=== PATIENT | female | born 1950 | race Caucasian/White ===

== ENCOUNTER 2018-01-29 07:32 | Emergency (ER) | payer MEDICARE, OTHER ==
[~2018-01-29] VITALS: Ht 172.7 cm; Wt 86.2 kg
[~2018-01-29 07:32] MED LIST: ALBU90OI INH; ALPR.5 PO; CEFD300; CEPH500 PO; ERGO400 PO; GLUC500 PO; HYDR1TAB94 PO; LETROZOLE2.5 MG; LEVSOD125 PO; LEVSOD150 PO; LOSA25 PO; LOSARTAN-HCTZ1 EAC1 PO; LOSHYD PO; METO25ER PO; ONDA4ODT PO; PROGESTERONE100 MG; SENIOR VITAMIN PO; VICODIN 5-3001 EACH PO; XARELTO15 MG PO
[2018-01-29] MEDS ORDERED: Aspirin EC81 MG PO (09:00)
== END 2018-01-29 09:15 | disposition home or self-care (01) ==
LOC: ER 07:32
DX: I82.4Z2 Acute embolism and thrombosis of unspecified deep veins of left distal lower extremity (principal); Z88.8 Allergy status to other drugs, medicaments and biological substances; Z91.012 Allergy to eggs; Z79.899 Other long term (current) drug therapy; I10 Essential (primary) hypertension; Z87.891 Personal history of nicotine dependence
CPT/HCPCS: 93971; 99284

== ENCOUNTER 2018-02-10 10:52 | Inpatient (IN) | payer MEDICARE, OTHER ==
[~2018-02-10] VITALS: Ht 162.6 cm; Wt 102.4 kg
[~2018-02-10 10:52] MED LIST changes: +Aspirin EC81 MG PO
[2018-02-10 12:10] LABS: BASOPHILS ABSOLUTE AUTO 0.04 K/mm3 (0.00-0.23); BASOPHILS PERCENT AUTO 0 % (0-2); EOSINOPHILS ABSOLUTE AUTO 0.03 K/mm3 (0.00-0.68); EOSINOPHILS PERCENT AUTO 0 % (0-6); Hematocrit 45.4 % (33.0-51.0); Hemoglobin 15.5 g/dL (11.5-16.0); IMMATURE GRAN ABSOLUTE AUTO 0.08 K/mm3 (0.00-0.10); IMMATURE GRAN PERCENT AUTO 1 % (0-1); LYMPHOCYTES ABSOLUTE AUTO 1.74 K/mm3 (0.84-5.20); LYMPHOCYTES PERCENT AUTO 19 % (21-46); MONOCYTES ABSOLUTE AUTO 0.71 K/mm3 (0.16-1.47); MONOCYTES PERCENT AUTO 8 % (4-13); Mean Corpuscular HGB 35.4 pg (26.0-34.0); Mean Corpuscular HGB Conc 34.1 g/dL (31.5-36.5); Mean Corpuscular Volume 104 fL (80-100); Mean Platelet Volume 9.5 fL (9.1-12.4); NEUTROPHILS ABSOLUTE AUTO 6.44 K/mm3 (1.96-9.15); NEUTROPHILS PERCENT AUTO 71 % (41-73); Platelet Count 168 K/mm3 (150-400); RDW Standard Deviation 49.7 fL (35.1-46.3); Red Blood Cell Count 4.38 M/mm3 (3.80-5.20); White Blood Cell Count 9.04 K/mm3 (4.00-11.30)
[2018-02-10 12:22] LABS: International Normalized Ratio 1.02; Prothrombin Time Results 10.6 Sec (9.7-11.5)
[2018-02-10 12:29] LABS: Alanine Aminotransfer (ALT/SGP 26 U/L (12-78); Albumin, Blood 3.6 g/dL (3.4-5.0); Albumin/Globulin Ratio 1.1 (0.8-1.8); Alk Phos 95 U/L (50-136); Anion Gap 8 mmol/L (6-16); Aspartate Aminotrans (AST/SGOT 16 U/L (12-37); Bilirubin, Total 0.9 mg/dL (0.1-1.0); Blood Urea Nitrogen 16 mg/dL (8-24); Bun/Creatinine Ratio 18.8 (12.0-20.0); CO2, Blood 23 mmol/L (21-32); Chloride, Blood 105 mmol/L (98-108); Creatinine, Blood 0.85 mg/dL (0.40-1.00); Globulin, Blood 3.3 g/dL (2.2-4.0); Glomerular Filtration Rate >60 (60-); Glucose, Blood 102 mg/dL (70-99); Potassium, Blood 3.7 mmol/L (3.5-5.5); Sodium, Blood 136 mmol/L (136-145); Total Protein, Blood 6.9 g/dL (6.4-8.2)
[2018-02-11 05:16] LABS: BASOPHILS ABSOLUTE AUTO 0.04 K/mm3 (0.00-0.23); BASOPHILS PERCENT AUTO 1 % (0-2); EOSINOPHILS ABSOLUTE AUTO 0.09 K/mm3 (0.00-0.68); EOSINOPHILS PERCENT AUTO 1 % (0-6); Hematocrit 42.6 % (33.0-51.0); Hemoglobin 14.4 g/dL (11.5-16.0); IMMATURE GRAN ABSOLUTE AUTO 0.11 K/mm3 (0.00-0.10); IMMATURE GRAN PERCENT AUTO 1 % (0-1); LYMPHOCYTES ABSOLUTE AUTO 2.98 K/mm3 (0.84-5.20); LYMPHOCYTES PERCENT AUTO 36 % (21-46); MONOCYTES ABSOLUTE AUTO 0.78 K/mm3 (0.16-1.47); MONOCYTES PERCENT AUTO 9 % (4-13); Mean Corpuscular HGB Conc 33.8 g/dL (31.5-36.5); Mean Corpuscular Volume 104 fL (80-100); Mean Platelet Volume 9.8 fL (9.1-12.4); NEUTROPHILS ABSOLUTE AUTO 4.29 K/mm3 (1.96-9.15); NEUTROPHILS PERCENT AUTO 52 % (41-73); Platelet Count 165 K/mm3 (150-400); RDW Coefficient Variation 13.1 % (11.7-14.2); RDW Standard Deviation 49.7 fL (35.1-46.3); Red Blood Cell Count 4.11 M/mm3 (3.80-5.20); White Blood Cell Count 8.29 K/mm3 (4.00-11.30)
[2018-02-11 05:35] LABS: Albumin, Blood 3.2 g/dL (3.4-5.0); Bilirubin, Total 0.7 mg/dL (0.1-1.0); Calcium, Blood 8.7 mg/dL (8.5-10.1); Globulin, Blood 3.1 g/dL (2.2-4.0); Potassium, Blood 4.2 mmol/L (3.5-5.5); Total Protein, Blood 6.3 g/dL (6.4-8.2)
[2018-02-12] MEDS ORDERED: ROPI1 PO (13:59)
[2018-02-12] MEDS ORDERED: ELIQUIS5 MG PO (14:00)
== END 2018-02-12 14:45 | disposition home or self-care (01) | DRG 176 ==
LOC: ER 10:52 → MEDS 12:37
PROVIDERS: Internal Medicine; Physician Assistant
DX: I26.99 Other pulmonary embolism without acute cor pulmonale (principal); E03.9 Hypothyroidism, unspecified; F41.9 Anxiety disorder, unspecified; I10 Essential (primary) hypertension; G25.81 Restless legs syndrome; Z85.3 Personal history of malignant neoplasm of breast; Z90.13 Acquired absence of bilateral breasts and nipples; Z88.7 Allergy status to serum and vaccine; Z88.8 Allergy status to other drugs, medicaments and biological substances; Z88.6 Allergy status to analgesic agent; Z91.012 Allergy to eggs; Z86.718 Personal history of other venous thrombosis and embolism; Z79.82 Long term (current) use of aspirin; Z79.899 Other long term (current) drug therapy; Z79.01 Long term (current) use of anticoagulants; Z87.891 Personal history of nicotine dependence
CPT/HCPCS: 36415; 71260; 80053; 82565; 85025; 85610; 85730; 93005; 93010; 94760; 96365; 99285; J1644; J1650; J7040; Q9967

== ENCOUNTER → 2018-12-07 | Outpatient (CLI) | payer MEDICARE, OTHER ==
[~2018-12-07] MED LIST changes: +ELIQUIS5 MG PO; +ROPI1 PO
[2018-12-07 15:20] LABS: International Normalized Ratio 2.95; Prothrombin Time Results 28.6 Sec (9.7-11.5)
== END ==
LOC: LAB EV 13:44 → LAB SHORT 13:44
PROVIDERS: Nurse Practitioner Family
DX: I82.402 Acute embolism and thrombosis of unspecified deep veins of left lower extremity (principal)
CPT/HCPCS: 36415; 85610

== ENCOUNTER → 2020-08-28 | Outpatient (CLI) | payer MEDICARE, OTHER ==
[~2020-08-28] MED LIST changes: +Norco 5-325 Ta1 EACH; +XARELTO20 MG
[2020-08-28 13:58] LABS: Hematocrit 39.9 % (33.0-51.0); Hemoglobin 13.7 g/dL (11.5-16.0); Mean Corpuscular HGB 34.3 pg (26.0-34.0); Mean Corpuscular HGB Conc 34.3 g/dL (31.5-36.5); Mean Corpuscular Volume 100 fL (80-100); Mean Platelet Volume 9.5 fL (9.1-12.4); Platelet Count 235 K/mm3 (150-400); RDW Coefficient Variation 12.4 % (11.7-14.2); RDW Standard Deviation 45.3 fL (35.1-46.3)
[2020-08-28 17:19] LABS: International Normalized Ratio 1.81; Prothrombin Time Results 18.7 Sec (9.7-11.5)
== END ==
LOC: LAB EV 13:51 → LAB SHORT 13:51
PROVIDERS: Nurse Practitioner Family
DX: I82.409 Acute embolism and thrombosis of unspecified deep veins of unspecified lower extremity (principal); R79.9 Abnormal finding of blood chemistry, unspecified
CPT/HCPCS: 36415; 85027; 85610

== ENCOUNTER → 2022-09-05 | Outpatient (CLI) | payer MEDICARE, OTHER ==
[2022-09-05 13:12] LABS: Bilirubin, Urine Neg (Neg); Blood, Urine 2+ (Neg); Glucose Qualitative, Urine Neg (Neg); Ketones, Urine Neg (Neg); Leukocyte Esterase, Urine 3+ (Neg); Nitrite, Urine Pos (Neg); Protein, Urine Neg (Neg); Urobilinogen, Urine NORM (Normal)
[2022-09-05 13:28] LABS: Color, Urine Pale Yellow (P-Yellow)
[2022-09-05 13:29] LABS: Appearance, Urine Hazy (Clear)
[2022-09-05 13:30] LABS: Bacteria Many /hpf; Squamous Epithelial Cells Few /hpf (Few); White Blood Cells, Urine 25-50 /hpf (0-5)
== END | disposition home or self-care (01) ==
LOC: LAB SHORT 11:07 → LAB 11:07
PROVIDERS: Internal Medicine Rheumatology
DX: M13.0 Polyarthritis, unspecified (principal); D64.9 Anemia, unspecified
CPT/HCPCS: 81001; 87077; 87086; 87186

== ENCOUNTER → 2022-12-10 | Outpatient (CLI) | payer MEDICARE, OTHER | END | disposition home or self-care (01) | LOC: LAB SHORT 17:38 → LAB 17:38 | DX: R30.0 Dysuria (principal) | CPT/HCPCS: 87077; 87086; 87186 ==

== ENCOUNTER → 2023-11-13 | Outpatient (CLI) | payer MEDICARE, OTHER | LOC: LAB 17:18 → LAB SHORT 17:18 | DX: N39.0 Urinary tract infection, site not specified (principal) | CPT/HCPCS: 87077; 87086; 87186 ==

== ENCOUNTER 2024-07-14 14:14 | Inpatient (IN) | payer MEDICARE, OTHER ==
[~2024-07-14] VITALS: Ht 175.3 cm; Wt 102.3 kg
[2024-07-14 15:14] LABS: BASOPHILS ABSOLUTE AUTO 0.07 K/mm3 (0.00-0.23); BASOPHILS PERCENT AUTO 1 % (0-2); EOSINOPHILS ABSOLUTE AUTO 0.36 K/mm3 (0.00-0.68); EOSINOPHILS PERCENT AUTO 2 % (0-6); Hematocrit 42.7 % (33.0-51.0); Hemoglobin 14.6 g/dL (11.5-16.0); IMMATURE GRAN ABSOLUTE AUTO 0.06 K/mm3 (0.00-0.10); IMMATURE GRAN PERCENT AUTO 0 % (0-1); LYMPHOCYTES ABSOLUTE AUTO 1.59 K/mm3 (0.84-5.20); LYMPHOCYTES PERCENT AUTO 11 % (21-46); MONOCYTES ABSOLUTE AUTO 1.14 K/mm3 (0.16-1.47); MONOCYTES PERCENT AUTO 8 % (4-13); Mean Corpuscular HGB 31.6 pg (26.0-34.0); Mean Corpuscular HGB Conc 34.2 g/dL (31.5-36.5); Mean Corpuscular Volume 92 fL (80-100); Mean Platelet Volume 10.1 fL (9.1-12.4); NEUTROPHILS ABSOLUTE AUTO 11.78 K/mm3 (1.96-9.15); NEUTROPHILS PERCENT AUTO 79 % (41-73); Platelet Count 312 K/mm3 (150-400); RDW Coefficient Variation 12.5 % (11.7-14.2); RDW Standard Deviation 42.7 fL (35.1-46.3); Red Blood Cell Count 4.62 M/mm3 (3.80-5.20)
[2024-07-14] MEDS ORDERED: Albuterol 2.5 MG/3 ML VIAL INH SCH ×2 (15:30→21:20)
[2024-07-14 15:33] LABS: Albumin, Blood 3.6 g/dL (3.4-5.0); Bilirubin, Total 0.9 mg/dL (0.1-1.0); Bun/Creatinine Ratio 25.9 (12.0-20.0); Calcium, Blood 9.8 mg/dL (8.5-10.1); Creatinine, Blood 1.43 mg/dL (0.40-1.00); Globulin, Blood 3.5 g/dL (2.2-4.0); Potassium, Blood 3.7 mmol/L (3.5-5.5); Total Protein, Blood 7.1 g/dL (6.4-8.2)
[2024-07-14] MEDS ORDERED: NS 1,000 ML IV SCH ×2 (17:10→21:15)
[2024-07-14] MEDS ORDERED: CALCITRIOL0.25 MC4 PO (17:17)
[2024-07-14] MEDS ORDERED: DULOXETINE HCL60 M1 PO (17:17)
[2024-07-14] MEDS ORDERED: LOSARTAN-HCTZ1 EAC5 PO (17:18)
[2024-07-14] MEDS ORDERED: FUROSEMIDE20 MG PO (17:18)
[2024-07-14] MEDS ORDERED: METOPROLOL TART25 MG PO (17:19)
[2024-07-14] MEDS ORDERED: EUTHYROX137 MC1 PO (17:19)
[2024-07-14] MEDS ORDERED: XARELTO20 M1 PO (17:19)
[2024-07-14 18:39] LABS: Source, Urine Clean Catch
[2024-07-14 18:58] LABS: Appearance, Urine Hazy (Clear); Bilirubin, Urine Neg (Neg); Blood, Urine 1+ (Neg); Color, Urine Yellow (P-Yellow); Glucose Qualitative, Urine Neg (Neg); Ketones, Urine Neg (Neg); Leukocyte Esterase, Urine 3+ (Neg); Nitrite, Urine Neg (Neg); Protein, Urine 2+ (Neg); Specific Gravity, Urine 1.015 (1.003-1.022); Urobilinogen, Urine NORM (Normal)
[2024-07-14 19:27] LABS: Bacteria Many /hpf; Squamous Epithelial Cells Mod /hpf (Few); Transitional Epithelial Cells Rare /hpf (0-Rare)
[2024-07-14] MEDS ORDERED: CefTRIAXone Sodium 1,000 MG in NS 100 ML IV ONE (19:55)
[2024-07-14] MEDS ORDERED: Ondansetron HCl 2 MG / ML 2ML Vial IV PRN (21:15)
[2024-07-14] MEDS ORDERED: Albuterol 2.5 MG/3 ML VIAL INH PRN (21:20)
[2024-07-14] MEDS ORDERED: Acetaminophen 325 MG TABLET PO PRN (21:20)
[2024-07-14] MEDS ORDERED: Magnesium Sulf 2 GM/Water 50ML 50 ML IV ONE (22:20)
[2024-07-14 23:03] VITALS: BP 168/62
[2024-07-14 23:15] VITALS: BP 146/96
[2024-07-14 23:30] VITALS: BP 147/99
[2024-07-14 23:54] LABS: Adenovirus Not Detected (NOT DETECT); Bordetella pertussis Not Detected (NOT DETECT); Chlamydophila pneumoniae Not Detected (NOT DETECT); Coronavirus 229E Not Detected (NOT DETECT); Coronavirus HKU1 Not Detected (NOT DETECT); Coronavirus NL63 Not Detected (NOT DETECT); Coronavirus OC43 Not Detected (NOT DETECT); Human Metapneumovirus Not Detected (NOT DETECT); Human Rhinovirus/Enterovirus Not Detected (NOT DETECT); Influenza A/2009-H1 Not Detected (NOT DETECT); Influenza A/H1 Not Detected (NOT DETECT); Influenza A/H3 Not Detected (NOT DETECT); Influenza B Not Detected (NOT DETECT); Mycoplasma pneumoniae Not Detected (NOT DETECT); Parainfluenza Virus 1 Not Detected (NOT DETECT); Parainfluenza Virus 2 Not Detected (NOT DETECT); Parainfluenza Virus 3 Not Detected (NOT DETECT); Parainfluenza Virus 4 Not Detected (NOT DETECT); Respiratory Syncytial Virus Not Detected (NOT DETECT); SARS-Cov-2 (COVID-19), BioFire Not Detected (NOT DETECT)
[2024-07-15] MEDS ORDERED: MethylPREDNISolone Sod Succ 125 MG Vial IV SCH
[2024-07-15] MEDS ORDERED: DULoxetine HCL 60 MG Capsule DR PO SCH ×3 (00:25→21:00)
[2024-07-15] MEDS ORDERED: Rivaroxaban 10 MG Tab PO SCH ×3 (00:25→21:00)
[2024-07-15] MEDS ORDERED: Calcitriol 0.25 MCG Cap PO SCH ×2 (00:30→09:00)
[2024-07-15 03:30] VITALS: BP 135/53
[2024-07-15 04:54] LABS: BASOPHILS ABSOLUTE AUTO 0.03 K/mm3 (0.00-0.23); BASOPHILS PERCENT AUTO 0 % (0-2); EOSINOPHILS PERCENT AUTO 0 % (0-6); Hematocrit 36.4 % (33.0-51.0); Hemoglobin 11.8 g/dL (11.5-16.0); IMMATURE GRAN ABSOLUTE AUTO 0.07 K/mm3 (0.00-0.10); IMMATURE GRAN PERCENT AUTO 1 % (0-1); LYMPHOCYTES ABSOLUTE AUTO 0.52 K/mm3 (0.84-5.20); LYMPHOCYTES PERCENT AUTO 4 % (21-46); MONOCYTES ABSOLUTE AUTO 0.23 K/mm3 (0.16-1.47); MONOCYTES PERCENT AUTO 2 % (4-13); Mean Corpuscular HGB 31.3 pg (26.0-34.0); Mean Corpuscular HGB Conc 32.4 g/dL (31.5-36.5); Mean Platelet Volume 10.5 fL (9.1-12.4); NEUTROPHILS ABSOLUTE AUTO 11.62 K/mm3 (1.96-9.15); NEUTROPHILS PERCENT AUTO 93 % (41-73); Platelet Count 217 K/mm3 (150-400); RDW Coefficient Variation 12.7 % (11.7-14.2); RDW Standard Deviation 45.3 fL (35.1-46.3); Red Blood Cell Count 3.77 M/mm3 (3.80-5.20); White Blood Cell Count 12.47 K/mm3 (4.00-11.30)
[2024-07-15 05:04] LABS: Mean Corpuscular Volume 97 fL (80-100)
--- NOTE | 2024-07-15 05:05 | NUR ---
SHIFT SUMMARY PT ARRIVED TO PCU 4 AT APPROXIMATELY 2300. PT IS A&O X4, ABLE TO MAKE NEEDS KNOWN. VSS, AFEBRILE, SPO2 >93% ON RA. PT REPORTS SOB ON EXERTION. SHE DENIES CP OR PRESSURE. PT ABLE TO TRANSFER FROM ED RPORTAGE SBA TO HOSPITAL BED. NS GTT INFUSING. ADMISSION COMPLETED. PT IS RESTING QUIETLY IN BED, CALL LIGHT WITHIN REACH, BREATHING EVEN AND UNLABORED.
[2024-07-15 05:10] LABS: Bun/Creatinine Ratio 29.3 (12.0-20.0); Calcium, Blood 8.7 mg/dL (8.5-10.1); Creatinine, Blood 1.23 mg/dL (0.40-1.00); Potassium, Blood 3.7 mmol/L (3.5-5.5)
[2024-07-15] MEDS ORDERED: Levothyroxine Sodium 0.137 MG Tab PO SCH (06:00)
[2024-07-15 08:15] VITALS: BP 136/61
--- NOTE | 2024-07-15 08:15 | NUR ---
ASSUMING CARE ASSUMING CARE AT 0700, BEDSIDE SHIFT REPORT GIVEN. PATIENT MEDICATED PER EMAR W/ MORNING MEDICATIONS. PT SITTING UP IN BED EATING BREAKFAST WHEN HEAD TO TOE ASSESSMENT WAS COMPLETED. CALL LIGHT IN REACH OF PT.
[2024-07-15] MEDS ORDERED: Cholecalciferol 1000 Unit Tablet (=25MCG) PO SCH (09:00)
[2024-07-15] MEDS ORDERED: Losartan Potassium 50 MG Tab PO SCH (09:00)
[2024-07-15] MEDS ORDERED: Enoxaparin 40 MG/0.4 ML SYR SC SCH (09:00)
[2024-07-15 10:36] LABS: Bun/Creatinine Ratio 26.6 (12.0-20.0); Calcium, Blood 8.5 mg/dL (8.5-10.1); Creatinine, Blood 1.24 mg/dL (0.40-1.00); Potassium, Blood 3.5 mmol/L (3.5-5.5)
[2024-07-15 11:51] VITALS: BP 126/72
[2024-07-15] MEDS ORDERED: CefTRIAXone Sodium 1,000 MG in NS 100 ML IV SCH (12:00)
[2024-07-15] MEDS ORDERED: Azithromycin 500 MG in NS 250 ML IV SCH (12:00)
[2024-07-15] MEDS ORDERED: CefTRIAXone 1000 MG Vial ONE (12:24)
[2024-07-15] MEDS ORDERED: NS 100 ML IV ONE (12:24)
[2024-07-15] MEDS ORDERED: Sodium Bicarb 8.4% Inj 150 MEQ in Dextrose 5% 1,000 ML IV SCH (12:30)
[2024-07-15 12:33] LABS: Base Excess Venous -7.1 mmol/L; Bicarbonate Venous 19.4 mmol/L (24.0-30.0); PCO2 Venous 30.3 mmHg (38-42); pH Blood Venous 7.38 (7.34-7.37)
[2024-07-15] MEDS ORDERED: Sodium Bicarb 8.4% Inj 75 MEQ in Sodium Chloride 0.45% 1,000 ML IV SCH (12:50)
[2024-07-15] MEDS ORDERED: Azithromycin 500 MG VIAL ONE (13:20)
[2024-07-15] MEDS ORDERED: NS 250 ML IV ONE (13:20)
[2024-07-15 14:36] LABS: Bun/Creatinine Ratio 25.8 (12.0-20.0); Calcium, Blood 8.4 mg/dL (8.5-10.1); Creatinine, Blood 1.32 mg/dL (0.40-1.00); Potassium, Blood 3.4 mmol/L (3.5-5.5)
[2024-07-15] MEDS ORDERED: MethylPREDNISolone Sod Succ 40 MG VIAL IV SCH (16:00)
[2024-07-15 16:15] VITALS: BP 146/53
--- NOTE | 2024-07-15 17:13 | NUR ---
SHIFT SUMMARY PT IS A&O X4, VSS STABLE SINUS TACH IN THE LOW 100'S DURING SHIFT. TRANSFERING SELF, AND AMBULATING TO THE BATHROOM. ROOM AIR, BREATHING TREATMENTS PRN, NO SOB, BREATHING UNLABORED AND EVEN. PT L LEG IS VISABLY LARGER THEN THE R LEG, PT STATES THIS IS NORMAL FOR HER. DR. BARBOUR CONSULT TODAY. PT UPDATED ON PLAN OF CARE. WILL CONTINUE TYO MONITOR UNTIL END OF SHIFT.
[2024-07-15 20:07] VITALS: BP 154/72
[2024-07-15 23:28] VITALS: BP 123/53
[2024-07-16 03:18] VITALS: BP 133/64
[2024-07-16 04:07] LABS: Hematocrit 33.4 % (33.0-51.0); Hemoglobin 11.3 g/dL (11.5-16.0)
[2024-07-16 04:30] LABS: Anion Gap 14 mmol/L (3-11); Blood Urea Nitrogen 38 mg/dL (8-24); Bun/Creatinine Ratio 29.2 (12.0-20.0); CO2, Blood 21 mmol/L (21-32); Calcium, Blood 8.3 mg/dL (8.5-10.1); Chloride, Blood 107 mmol/L (98-108); Glomerular Filtration Rate 44 (60-); Glucose, Blood 164 mg/dL (70-99); Phosphorus, Blood 2.8 mg/dL (2.5-4.9); Potassium, Blood 3.7 mmol/L (3.5-5.5); Sodium, Blood 138 mmol/L (136-145)
--- NOTE | 2024-07-16 05:30 | NUR ---
SHIFT SUMMARY THIS RN ASSUMED CARE OF PATIENT AT 1900. PT A&O X4. ABLE TO MAKE NEEDS KNOWN. SR/ST ON MONITOR WITH HR 90-100'S. OTHER VSS. ON RA. DENIES SOB AT REST. UP TO BATHROOM WITH SBA. PRN BREATHING TREATMENTS. INFUSING BICARB PER EMAR. BED IN LOWEST POSITION AND CALL LIGHT WITHIN REACH. THIS RN WILL REPORT TO ONCOMING DAYSHIFT RN.
[2024-07-16] MEDS ORDERED: NS 250 ML IV ONE (07:43)
[2024-07-16] MEDS ORDERED: Azithromycin 500 MG VIAL ONE (07:43)
[2024-07-16] MEDS ORDERED: CefTRIAXone 1000 MG Vial ONE (07:43)
[2024-07-16] MEDS ORDERED: NS 100 ML IV ONE (07:43)
[2024-07-16 12:08] VITALS: BP 131/61
[2024-07-16 15:36] VITALS: BP 153/75
--- NOTE | 2024-07-16 17:35 | NUR ---
SHIFT SUMMARY; ASSUMED CARE AT 0700. A/A/OX4, INDEPENDANT IN ROOM. FLUIDS RUNNING AT 75ML/HR. ABX PER EMAR. L/S CLEAR T/O, VSS. NO SOB DURING SHIFT. LEFT LEG US COMPLETED, LEFT LEG LARGER THAN RIGHT, DENIES PAIN, NO REDNESS. STATUS CHANGED TO MEDICAL TODAY, WILL CONTINUE TO MONITOR AND TREAT UNTIL CHANGE OF SHIFT.
[2024-07-16] MEDS ORDERED: Sodium Bicarb 8.4% Inj 75 MEQ in Sodium Chloride 0.45% 1,000 ML IV SCH (19:30)
[2024-07-16 19:58] VITALS: BP 140/64
[2024-07-16] MEDS ORDERED: MethylPREDNISolone Sod Succ 40 MG VIAL IV SCH (21:00)
[2024-07-17 04:05] VITALS: BP 118/55
[2024-07-17 04:23] LABS: BASOPHILS ABSOLUTE AUTO 0.01 K/mm3 (0.00-0.23); BASOPHILS PERCENT AUTO 0 % (0-2); EOSINOPHILS PERCENT AUTO 0 % (0-6); Hematocrit 32.1 % (33.0-51.0); Hemoglobin 10.3 g/dL (11.5-16.0); IMMATURE GRAN ABSOLUTE AUTO 0.23 K/mm3 (0.00-0.10); IMMATURE GRAN PERCENT AUTO 2 % (0-1); LYMPHOCYTES ABSOLUTE AUTO 0.44 K/mm3 (0.84-5.20); LYMPHOCYTES PERCENT AUTO 4 % (21-46); MONOCYTES ABSOLUTE AUTO 0.43 K/mm3 (0.16-1.47); MONOCYTES PERCENT AUTO 4 % (4-13); Mean Corpuscular HGB 31.1 pg (26.0-34.0); Mean Corpuscular HGB Conc 32.1 g/dL (31.5-36.5); Mean Corpuscular Volume 97 fL (80-100); Mean Platelet Volume 10.4 fL (9.1-12.4); NEUTROPHILS ABSOLUTE AUTO 8.93 K/mm3 (1.96-9.15); NEUTROPHILS PERCENT AUTO 89 % (41-73); Platelet Count 216 K/mm3 (150-400); RDW Standard Deviation 46.2 fL (35.1-46.3); Red Blood Cell Count 3.31 M/mm3 (3.80-5.20); White Blood Cell Count 10.04 K/mm3 (4.00-11.30)
--- NOTE | 2024-07-17 04:27 | NUR ---
SHIFT SUMMARY THIS RN ASSUMED CARE OF PATIENT AT 1900. PT A&O X4. ABLE TO MAKE NEEDS KNOWN. SR/ST ON MONITOR WITH HR 90-100'S. OTHER VSS. ON RA. DENIES SOB AT REST. UP TO BATHROOM WITH SBA. PRN BREATHING TREATMENTS. NEW RATE TO BICARB GTT, INFUSING PER EMAR. PT REPORTING RETURNED DRY COUGH LAST NIGHT. OTHERWISE NO ACUTE EVENTS. BED IN LOWEST POSITION AND CALL LIGHT WITHIN REACH. THIS RN WILL REPORT TO ONCOMING DAYSHIFT RN.
[2024-07-17 04:50] LABS: Albumin/Globulin Ratio 1.2 (0.8-1.8); Bilirubin, Total 0.4 mg/dL (0.1-1.0); Bun/Creatinine Ratio 28.8 (12.0-20.0); Calcium, Blood 8.1 mg/dL (8.5-10.1); Creatinine, Blood 1.18 mg/dL (0.40-1.00); Globulin, Blood 2.5 g/dL (2.2-4.0); Magnesium, Blood 1.9 mg/dL (1.6-2.4); Phosphorus, Blood 2.6 mg/dL (2.5-4.9); Potassium, Blood 3.4 mmol/L (3.5-5.5); Total Protein, Blood 5.5 g/dL (6.4-8.2)
[2024-07-17 05:53] LABS: BASOPHILS PERCENT MAN 0 % (0-2); EOSINOPHILS PERCENT MAN 0 % (0-6); LYMPHOCYTES PERCENT MAN 7 % (21-46); MONOCYTES PERCENT MAN 5 % (4-13); NEUTROPHILS ABSOLUTE MAN 8.83 K/mm3 (1.96-9.15); SEG NEUTROPHILS PERCENT MAN 88 % (41-73); TOTAL CELLS COUNTED 100
[2024-07-17] MEDS ORDERED: Potassium Chloride 10 Meq Tablet SA PO ONE (06:40)
[2024-07-17] MEDS ORDERED: CefTRIAXone 1000 MG Vial ONE (07:48)
[2024-07-17] MEDS ORDERED: NS 100 ML IV ONE (07:48)
[2024-07-17] MEDS ORDERED: Azithromycin 500 MG VIAL ONE (07:48)
[2024-07-17] MEDS ORDERED: NS 250 ML IV ONE (07:48)
[2024-07-17 08:00] VITALS: BP 149/71
[2024-07-17] MEDS ORDERED: Lactobacil 2-S.Thermo-Bifido 1 1 Cap PO SCH (09:00)
[2024-07-17] MEDS ORDERED: Sodium Bicarbonate 650 MG Tab PO SCH (09:00)
[2024-07-17] MEDS ORDERED: VISBIOME 112.51 EACH PO (11:06)
[2024-07-17] MEDS ORDERED: Azithromycin500 MG PO (11:07)
[2024-07-17] MEDS ORDERED: PRED20 PO (11:09)
[2024-07-17 11:15] VITALS: BP 132/68
--- NOTE | 2024-07-17 11:59 | NUR ---
ASSUMPTION OF CARE/DISCHARGE NOTE ASSUMED CARE OF PT AT 0700 THIS AM. NO ACUTE CHANGES. PT DISCHARGED HOME AT 1200 IN THE CARE OF HER WITH ALL HER BELONGINGS. DISCHARGE TEACHING REVEIWED INCLUDING FOLLOW UP APPOINTMENTS, EDUCATION AND MEDICATION LIST/CHANGES. PRESCRIPTION FOR SODIUM BICARB CALLED TO PT'S PHARMACY UNDER DR BARBOUR BECAUSE HE WANTED THE PT TO BE DISCHARGED WITH IT, OTHER PRESCRIPTIONS WERE FAXED. PT AND HER HAD NO QUESTIONS OR CONCERNS AT THE TIME OF DISCHARGE. NO FURTHER NEEDS IDENTIFIED.
== END 2024-07-17 12:03 | disposition home or self-care (01) | DRG 202 ==
LOC: ER 14:14 → PCU 22:11
PROVIDERS: Hospitalist; Internal Medicine Nephrology; Nurse Practitioner Acute Care; Physician Assistant; Student in an Organized Health Care Education/Training Program; ADMIT Family Medicine
DX: J45.901 Unspecified asthma with (acute) exacerbation (principal); E87.20 Acidosis, unspecified; R65.10 Systemic inflammatory response syndrome (SIRS) of non-infectious origin without acute organ dysfunction; N17.9 Acute kidney failure, unspecified; N18.30 Chronic kidney disease, stage 3 unspecified; I12.9 Hypertensive chronic kidney disease with stage 1 through stage 4 chronic kidney disease, or unspecified chronic kidney disease; Z90.5 Acquired absence of kidney; E03.9 Hypothyroidism, unspecified; E87.6 Hypokalemia; E88.09 Other disorders of plasma-protein metabolism, not elsewhere classified; D63.1 Anemia in chronic kidney disease; Z85.3 Personal history of malignant neoplasm of breast; Z86.711 Personal history of pulmonary embolism; Z79.890 Hormone replacement therapy; Z79.899 Other long term (current) drug therapy; Z88.8 Allergy status to other drugs, medicaments and biological substances; Z86.718 Personal history of other venous thrombosis and embolism; Z79.01 Long term (current) use of anticoagulants; Z88.6 Allergy status to analgesic agent; Z91.012 Allergy to eggs; Z87.891 Personal history of nicotine dependence; Z90.13 Acquired absence of bilateral breasts and nipples; Z90.89 Acquired absence of other organs
CPT/HCPCS: 0202U; 36415; 71260; 76770; 80048; 80053; 80069; 81001; 82803; 83605; 83735; 83880; 84100; 84145; 84484; 85014; 85018; 85025; 87077; 87086; 87186; 93306; 93880; 93971; 94640; 94644; 94664; 94760; 94762; 96361; 96365-59; 99285-25; A9270; J0456; J0696; J2919; J3475; J7030; J7050; Q9967

== ENCOUNTER → 2024-11-04 | Outpatient (CLI) | payer MEDICARE, OTHER ==
[~2024-11-04] MED LIST changes: +Azithromycin500 MG PO; +CALCITRIOL0.25 MC4 PO; +DULOXETINE HCL60 M1 PO; +EUTHYROX137 MC1 PO; +FUROSEMIDE20 MG PO; +LOSARTAN-HCTZ1 EAC5 PO; +METOPROLOL TART25 MG PO; +PRED20 PO; +VISBIOME 112.51 EACH PO; +XARELTO20 M1 PO
[2024-11-04 16:14] LABS: Microalbumin, Urine Quant. <5.000 mg/L (0.000-20.000); Protein, Urine Quantitative <5.0 mg/dL (0.0-11.9)
== END | disposition home or self-care (01) ==
LOC: LAB 14:00 → LAB SHORT 14:00 → LAB FUT 02-24 11:40
PROVIDERS: Internal Medicine Nephrology
DX: N18.30 Chronic kidney disease, stage 3 unspecified (principal); D63.1 Anemia in chronic kidney disease; E83.52 Hypercalcemia; N25.81 Secondary hyperparathyroidism of renal origin; E78.00 Pure hypercholesterolemia, unspecified; D51.8 Other vitamin B12 deficiency anemias; D52.8 Other folate deficiency anemias; D50.9 Iron deficiency anemia, unspecified; R76.9 Abnormal immunological finding in serum, unspecified; R94.5 Abnormal results of liver function studies; R94.6 Abnormal results of thyroid function studies
CPT/HCPCS: 81050; 82043; 82570; 84156

== ENCOUNTER → 2025-03-08 | Outpatient (CLI) | payer MEDICARE, OTHER | LOC: LAB SHORT 17:22 → LAB 17:22 | DX: R10.9 Unspecified abdominal pain (principal); R35.0 Frequency of micturition | CPT/HCPCS: 87077; 87086; 87186 ==

== ENCOUNTER → 2025-09-10 | Outpatient (CLI) | payer MEDICARE, OTHER ==
[2025-09-10 15:41] LABS: Microalbumin, Urine Quant. 7.33 mg/L (0.000-20.000); Protein, Urine Quantitative 6.3 mg/dL (0.0-11.9)
== END ==
LOC: LAB 12:06 → LAB SHORT 12:06 → LAB FUT 09-08 14:15
PROVIDERS: Internal Medicine Nephrology
DX: N18.30 Chronic kidney disease, stage 3 unspecified (principal); D63.1 Anemia in chronic kidney disease; N25.81 Secondary hyperparathyroidism of renal origin; E55.9 Vitamin D deficiency, unspecified; E78.00 Pure hypercholesterolemia, unspecified; R76.9 Abnormal immunological finding in serum, unspecified; R94.5 Abnormal results of liver function studies; R94.6 Abnormal results of thyroid function studies
CPT/HCPCS: 81050; 82043; 82570; 84156